=== PATIENT | male | born 1960 | race Caucasian/White ===

== ENCOUNTER → 2016-12-30 | Outpatient (CLI) | payer BC ==
[~2016-12-30] MED LIST: AMOXICILLIN 8751 TAB PO; ASPIRIN 32325 MG/TAB PO; COZAAR25 MG PO; HYDROCODONE/APAP; IBUPROFEN100 MG PO; LEVAQUIN 750MG750 M1 PO; LEVOTHYROXIN0.075 MG PO; LIPITOR 10MG10 MG; LISINOPRIL20 MG PO; PROAIR HFA0.09 MG/AC IH; TESSALON PERLE200 MG PO
== END ==
LOC: SUN.DIA 09:38
DX: E11.9 Type 2 diabetes mellitus without complications (principal); E78.5 Hyperlipidemia, unspecified; I10 Essential (primary) hypertension; E66.9 Obesity, unspecified; Z68.34 Body mass index [BMI] 34.0-34.9, adult; Z71.3 Dietary counseling and surveillance
CPT/HCPCS: G0108

== ENCOUNTER → 2017-02-03 | Outpatient (CLI) | payer BC | LOC: SUN.DIA 10:20 | DX: E11.9 Type 2 diabetes mellitus without complications (principal); E78.5 Hyperlipidemia, unspecified; I10 Essential (primary) hypertension; E66.9 Obesity, unspecified; Z68.33 Body mass index [BMI] 33.0-33.9, adult; Z71.3 Dietary counseling and surveillance | CPT/HCPCS: G0108 ==

== ENCOUNTER → 2017-06-03 | Outpatient (CLI) | payer BC | LOC: SUN.DIA 08:47 | DX: E11.9 Type 2 diabetes mellitus without complications (principal); E78.5 Hyperlipidemia, unspecified; I10 Essential (primary) hypertension; E66.9 Obesity, unspecified; Z68.24 Body mass index [BMI] 24.0-24.9, adult; Z71.3 Dietary counseling and surveillance | CPT/HCPCS: G0108 ==

== ENCOUNTER → 2019-03-02 | Outpatient (CLI) | payer BC | LOC: COL.RAD 12:48 | DX: K21.9 Gastro-esophageal reflux disease without esophagitis (principal); K44.9 Diaphragmatic hernia without obstruction or gangrene ==

== ENCOUNTER 2019-03-30 05:24 | Day surgery (SDC) | payer BC, OTHER ==
[~2019-03-30] VITALS: Ht 170.2 cm; Wt 93.5 kg
[2019-03-30] VITALS (12 sets, daily range): BP systolic 104–136; BP diastolic 61–89; PULSE 72–110; TEMP 97.5–98.5
[2019-03-30] MEDS ORDERED: COZAAR100 MG PO (05:51)
[2019-03-30] MEDS ORDERED: SYNTHROID0.05 MG/TA PO (05:51)
[2019-03-30] MEDS ORDERED: GLUCOPHAGE500 MG/TAB PO (05:51)
[2019-03-30] MEDS ORDERED: CRESTOR20 MG PO (05:51)
[2019-03-30] MEDS ORDERED: VIAGRA100 M1 PO (05:52)
[2019-03-30] MEDS ORDERED: PRILOSEC 20MG20 MG PO (05:52)
[2019-03-30] MEDS ORDERED: VICTOZA6 MG/ML SQ (05:52)
[2019-03-30] MEDS ORDERED: EYE DROPS ALLER15 ML OP (06:14)
[2019-03-30] MEDS ORDERED: TYLENOL 500MG500 MG PO (06:14)
[2019-03-30] MEDS ORDERED: ZYRTEC 10MG10 MG PO (06:15)
--- NOTE | 2019-03-30 11:10 | NUR ---
Resting in bed with HOB elevated, eyes closed, respirations even and unlabored. Opens eyes when name is called. Patient says that he is doing okay, rates pain 5/10 in abdomen, describes it as "just there". Explains that his throat is sore. Explained that it is due to the intubation. Abdomen rounded and soft. There are six lap incisions on abdomen. All with bandaids applied to site that are all clean, dry, and intact. Educated the importance with the patient and his family members on coughing and deep breathing. Explained that respiratory therapy will come up to teach use of the incentive spirometer and that we will also be getting the patient up in about a couple hours to start ambulating in the halls. Call light in reach and side rails up times two. SCD's on both lower extremities. Patient and family deny further needs at this time.
--- NOTE | 2019-03-30 11:35 | NUR ---
Lying in bed with eyes closed. Easily awakens when spoken to. Describes pain as 4/10 in stomach that is "there". Questions why his throat is sore. Explained that per the surgery nurse, the intubation was a little difficult. Assessed the six laparoscopic sites on abdomen, all clean, dry, and with band aids intact. Water is at bedside. Spouse in room. Patient denies any further needs at this time.
--- NOTE | 2019-03-30 14:15 | NUR ---
Patient ambulates in [place] with daughter. Gait steady. Rates pain 2/10 in abdomen, describes as sore. Six laparoscopic incisions with bandaids clean, dry, and intact. Patient explains that he does not feel hungry but he would like [place] and orange jello. Explained we will order for him. Patient and daughter says that the glazier supervisor was in earlier and explained that for one week the patient will need to be on clear liquids and then next week can advance up to full liquids. Patient denies further needs at this time.
--- NOTE | 2019-03-30 16:50 | NUR ---
Ambulates in halls with . Returns to room. Glucose level 252, 4 units Novolog administered SQ in right upper arm per sliding scale orders. Administered Metformin as well. Patient concerned with elevated glucose levels. Discussed how surgery can cause elevated glucose levels and this is why he is on a sliding scale insulin to help to control his level. Family leaving at this time to allow patient to rest. Patient lies in bed, SCD's applied. Patient says that he has voided multiple times without difficulty. Passing gas, has not had BM. Six laparoscopic incisions with bandaids clean, dry, and intact. Side rails up times two, call light in reach. Patient denies further needs at this time.
--- NOTE | 2019-03-30 18:43 | NUR ---
Lying in bed with family at bedside. Patient alert and talkative. Rates pain 1/10 in abdomen. Is using the incentive spirometer as instructed. Waiting on sherbert that was ordered. Patient and family deny any concerns or further needs at this time.
--- NOTE | 2019-03-30 20:30 | NUR ---
PATIENT AMBULATING IN HALLWAYS WITH FAMILY. DENIES NEEDS AT THIS TIME.
--- NOTE | 2019-03-30 21:00 | NUR ---
PATIENT TAKES SCHEDULED ES TYLENOL AT THIS TIME. DENIES NEED FOR STRONGER PAIN MEDS. HAS 6 LAP SITES WITH DRY BANDAIDS NOTED. REPORTS BELCHING ALOT, FAINTLY PASSING FLATUS. SL TO LEFT WRIST WITHOUT REDNESS OR SWELLING.
[2019-03-31 01:16] VITALS: BP 112/74; PULSE 96; TEMP 98
[2019-03-31 03:56] VITALS: BP 104/74; PULSE 91; TEMP 97.6
--- NOTE | 2019-03-31 04:41 | NUR ---
Takes scheduled Tylenol. Has rested well this shift.
--- NOTE | 2019-03-31 07:26 | NUR ---
REPORT FROM NAHOMI GAVIN.
[2019-03-31 08:33] VITALS: BP 123/84; PULSE 84; TEMP 97.7
--- NOTE | 2019-03-31 10:18 | NUR ---
First visit from the machine setter automatic. No needs right now.
--- NOTE | 2019-03-31 10:39 | NUR ---
FRANK ORDER RECIEVED FROM AND PHARMACY RETURNED.
[2019-03-31] MEDS ORDERED: ROXICODONE 55 MG/TAB PO (12:09)
[2019-03-31 12:23] VITALS: BP 142/83; PULSE 81; TEMP 98
--- NOTE | 2019-03-31 12:45 | NUR ---
DISCHARGE INSTRUCTIONS REVIEWED WITH PATIENT AND . QUESTIONS ANSWERED. PT LEFT AMBULATORY WITH STAFF.
== END 2019-03-31 12:46 | disposition home or self-care (01) ==
LOC: SDCO 05:24 → SURG 10:29 → SDCO 03-31 12:46
DX: K44.9 Diaphragmatic hernia without obstruction or gangrene (principal); K21.9 Gastro-esophageal reflux disease without esophagitis; I10 Essential (primary) hypertension; E78.5 Hyperlipidemia, unspecified; E03.9 Hypothyroidism, unspecified; G47.33 Obstructive sleep apnea (adult) (pediatric); J45.909 Unspecified asthma, uncomplicated; E11.9 Type 2 diabetes mellitus without complications; Z79.84 Long term (current) use of oral hypoglycemic drugs; Z83.3 Family history of diabetes mellitus; Z88.8 Allergy status to other drugs, medicaments and biological substances
CPT/HCPCS: OP; J0330; J1815; J2250; J2405; J2704; J3010; J7030; J7120

== ENCOUNTER 2020-10-19 07:28 | Emergency (ER) | payer BC, OTHER ==
[~2020-10-19] VITALS: Ht 167.6 cm; Wt 88.6 kg
[~2020-10-19 07:28] MED LIST changes: +COZAAR100 MG PO; +CRESTOR20 MG PO; +EYE DROPS ALLER15 ML OP; +GLUCOPHAGE500 MG/TAB PO; +PRILOSEC 20MG20 MG PO; +ROXICODONE 55 MG/TAB PO; +SYNTHROID0.05 MG/TA PO; +TYLENOL 500MG500 MG PO; +VIAGRA100 M1 PO; +VICTOZA6 MG/ML SQ; +ZYRTEC 10MG10 MG PO
[2020-10-19 07:37] VITALS: TEMP 97.7
[2020-10-19] MEDS ORDERED: GLUCOPHAGE XR500 M1 PO (07:58)
[2020-10-19] MEDS ORDERED: MICARDIS40 MG PO (07:58)
[2020-10-19] MEDS ORDERED: CRESTOR20 MG PO (08:02)
[2020-10-19] MEDS ORDERED: LIDODERM 5% PATC1 EA TP (09:29)
[2020-10-19] MEDS ORDERED: VOLTAREN GEL 1%1 TU TP ×3 (09:29→09:44)
[2020-10-19] MEDS ORDERED: VALIUM 5MG T5 MG/TAB PO ×2 (09:29→09:36)
[2020-10-19] MEDS ORDERED: TYLENOL 325MG325 MG PO (09:29)
[2020-10-19] MEDS ORDERED: ROXICODONE 55 MG/TAB PO ×2 (09:29→09:36)
[2020-10-19 10:04] VITALS: BP 131/86; PULSE 82
== END 2020-10-19 10:04 | disposition home or self-care (01) ==
LOC: COL.ER 07:28
DX: M54.5 Low back pain (principal); G89.29 Other chronic pain; Z79.84 Long term (current) use of oral hypoglycemic drugs
CPT/HCPCS: J1885

== ENCOUNTER → 2020-11-06 | Outpatient (CLI) | payer BC, OTHER ==
[~2020-11-06] MED LIST changes: +GLUCOPHAGE XR500 M1 PO; +LIDODERM 5% PATC1 EA TP; +MICARDIS40 MG PO; +TYLENOL 325MG325 MG PO; +VALIUM 5MG T5 MG/TAB PO; +VOLTAREN GEL 1%1 TU TP
== END ==
LOC: COL.RAD 07:58
DX: M47.816 Spondylosis without myelopathy or radiculopathy, lumbar region (principal); M47.818 Spondylosis without myelopathy or radiculopathy, sacral and sacrococcygeal region; M51.36 Other intervertebral disc degeneration, lumbar region

== ENCOUNTER → 2021-07-03 | Outpatient (CLI) | payer BC, OTHER | LOC: COL.RAD 10:02 | DX: R10.11 Right upper quadrant pain (principal) ==

== ENCOUNTER → 2021-07-26 | Outpatient (CLI) | payer BC, OTHER | LOC: COL.RAD 06:46 | DX: R10.11 Right upper quadrant pain (principal) | CPT/HCPCS: A9537; J2805 ==

== ENCOUNTER 2021-08-12 18:53 | Emergency (ER) | payer BC, OTHER ==
[~2021-08-12] VITALS: Ht 170.2 cm; Wt 85.9 kg
[2021-08-12 19:49] VITALS: BP 131/78; PULSE 81; TEMP 97.9
== END 2021-08-12 19:50 | disposition home or self-care (01) ==
LOC: COL.ER 18:53
DX: R07.89 Other chest pain (principal); I10 Essential (primary) hypertension; E78.5 Hyperlipidemia, unspecified; Z79.899 Other long term (current) drug therapy; W17.89XA Other fall from one level to another, initial encounter; Y99.0 Civilian activity done for income or pay